=== PATIENT | male | born 1950 | race Caucasian/White ===

== ENCOUNTER 2023-04-28 12:36 | Outpatient (OUT) | payer MEDICARE, OTHER, SELFPAY ==
[2023-04-29 04:07] LABS: PSA, Free 0.37 ng/mL; Prostate Specific Ag 3.6 ng/mL (0.0-4.0)
== END 2023-04-28 12:37 ==
LOC: LAB 12:44
PROVIDERS: PCP Family Medicine
DX: R97.20 Elevated prostate specific antigen [PSA] (principal)
CPT/HCPCS: 36415; 84153; 84154